=== PATIENT | male | born 1980 | race Caucasian/White ===

== ENCOUNTER 2023-09-20 17:15 | Emergency (ER) | payer OTHER, SELFPAY ==
[2023-09-20] VITALS (10 sets, daily range): BP systolic 116–133; BP diastolic 80–92; PULSE 64–94; RESP 18; TEMP 36.7; O2SAT 95–99; BMI 26.4
--- NOTE | 2023-09-20 18:39 | CRLHL7_ITS ---
For Patients: As a result of the Century Cures Act, medical imaging exams and procedure reports are released immediately into your electronic medical record. You may view this report before your referring provider. If you have questions, please contact your health care provider. INDICATION: Chest pain. TECHNIQUE: Chest 2 views. COMPARISON: None. FINDINGS: Cardiovascular and mediastinum: Heart size and vasculature are normal in caliber and appearance. Lungs and pleural spaces: Lungs are clear. No sign of infiltrate or mass. No sign of pleural effusion. No pneumothorax. Bones and soft tissues: No significant findings. IMPRESSION: No acute or significant findings. Dictated by Gadiel Zaldivar MD @ 09/20/2023 8:34:33 PM (Electronically Signed)
[2023-09-20 19:11] LABS: Basophils Absolute Auto 0.01 K/uL (0.00-0.30); Basophils Percent Auto 0.1 % (0.0-3.0); Eosinophils Absolute Auto 0.08 K/uL (0.00-0.50); Eosinophils Percent Auto 1.1 % (0.0-7.0); Hematocrit 50.3 % (37.0-53.0); Hemoglobin* 16.8 gm/dL (13.5-17.5); Immature Granulocytes Abs Auto 0.01 K/uL (0.00-0.30); Immature Granulocytes Pct Auto 0.1 %; Lymphocytes Absolute Auto 1.92 K/uL (0.90-2.90); Lymphocytes Percent Auto 27.1 % (20-44); Mean Corpuscular HGB Conc 33 gm/dL (32-36); Mean Corpuscular Hemoglobin 30 pg (26-34); Mean Corpuscular Volume 90 fL (80-100); Monocytes Percent Auto 9.7 % (0.0-11.0); Neutrophils Absolute Auto 4.38 K/uL (1.7-7.0); Neutrophils Percent Auto 61.9 % (42.0-72.0); Platelet Count* 176 K/uL (140-440); RDW Coefficient of Variation % 12.3 % (11.5-15.5); Red Blood Count 5.59 m/uL (4.30-5.90); White Blood Count* 7.09 K/uL (4.50-11.00)
[2023-09-20 19:14] LABS: Slide Review Reflex No
--- NOTE | 2023-09-20 19:19 | ED_ITS ---
HPI - SOB/Dyspnea General Date Seen: 09/20/23 Chief Complaint: Shortness of Breath/Dyspnea Stated Complaint: shortness of breath, heart pain Time Seen by Provider: 09/20/23 18:10 Source: patient Mode of arrival: ambulatory Limitations: no limitations History of Present Illness HPI Narrative: Patient is a 42-year-old male with no pertinent medical issues presented emergency department for chest pain and shortness of breath. States symptoms started yesterday after he drank 3 beers and smoked a cigarette. Does states he has been having the symptoms all and off for several years but yesterday felt worse. He woke up this morning felt the symptoms but is take went on he felt like he was developing them again. So came to emergency department. Symptoms resolved shortly after he was triaged and now he feels asymptomatic. Says the chest pain is a sharp sensation on both sides of his chest around ribs 3. Denies fevers, chills, abdominal pain, lightheadedness, dizziness, nausea, vom iting. Does states he has not seen a primary care provider in a long time. Related Data Home Medications Medication Instructions Recorded Confirmed No Known Home Medications 09/20/23 09/20/23 Allergies Allergy/AdvReac Type Severity Reaction Status Date / Time Penicillins Allergy Verified 09/20/23 17:32 Review of Systems Status of ROS: Reports: 10 or more systems reviewed and unremarkable except as noted in History and below [facility] Social History Smoking Status: Former smoker Do you use any of these nicotine containing products: None Second hand tobacco smoke exposure: No How often do you have a drink containing alcohol: never AUDIT-C Alcohol total score: 0 Non-prescribed substance use: denies use service: No Exam Narrative: Exam Narrative: Const: Well-nourished, Well-developed, in no distress Eyes: PERRL, no conjunctival injection, and symmetrical lids HENT: Atraumatic external nose and ears. Moist mucous membranes. Neck: Symmetric, trachea midline, No thyromegaly. CVS: RRR, No murmurs or gallops. Peripheral pulses 2+ and equal in all extremities RESP: Unlabored respiratory effort. Clear to auscultation bilaterally. GI: Nontender/Nondistended, No rebound or guarding. MSK:Extremities w/o deformity, Normal Active ROM Skin: Warm, Dry. No rashes or lesions. Neuro: Normal Muscle tone, No focal neurological deficits. Psych: Awake, Alert, & Oriented x3. Appropriate mood and affect. Const: Vital Signs, click to edit/add: Vital Signs - 24 hr 09/20/23 17:28 09/20/23 19:08 Temperature 98.0 F Pulse Rate 71 Pulse Rate [Right Pulse Oximeter] 94 Respiratory Rate 18 Blood Pressure [Le ft Forearm] 116/80 Pulse Oximetry 98 95 Oxygen Delivery Me thod Room Air Course Vital Signs Vital signs: Initial Vital Signs Temperature 98.0 F 09/20/23 17:28 Temperature Source Temporal Artery Scan 09/20/23 17:28 Pulse Rate 94 09/20/23 17:28 Respiratory Rate 18 09/20/23 17:28 Blood Pressure 116/80 09/20/23 17:28 Blood Pressure Mean 92 09/20/23 17:28 Blood Pressure Position Sitting 09/20/23 17:28 Pulse Oximetry 98 09/20/23 17:28 Oxygen Delivery Method Room Air 09/20/23 17:28 Vital Signs Temperature 98.0 F 09/20/23 17:28 Pulse Rate 94 09/20/23 17:28 Respiratory Rate 18 09/20/23 17:28 Blood Pressure 116/80 09/20/23 17:28 Pulse Oximetry 98 09/20/23 17:28 Oxygen Delivery Method Room Air 09/20/23 17:28 Temperature 98.0 F 09/20/23 17:28 Pulse Rate 71 09/20/23 19:08 Respiratory Rate 18 09/20/23 17:28 Blood Pressure 116/80 09/20/23 17:28 Pulse Oximetry 95 09/20/23 19:08 Oxygen Delivery Method Room Air 09/20/23 17:28 MDM - SOB/Dyspnea MDM Narrative Medical decision making narrative: Patient is a 42-year-old male presenting to emergency department for chest pain or shortness of breath. He has been having symptoms on and off for over a year now but states they got worse yesterday. Symptoms are now resolved today in the resolve shortly prior to coming back to his bed in the ED. no other concerns noted. Differential includes pneumonia, viral infection, pneumothorax, anxiety, ACS. Ordered chest x-ray, CBC, CMP, troponin, COVID/flu/RSV. EKG shows no concerning abnormalities. CBC, CMP, troponin showed no concerning findings. He is COVID positive which could be the cause of his symptoms. Chest x-ray showed no concerning abnormalities ED. patient is otherwise doing well I offered the patient Paxlovid but he declined. Lab Data Labs: Lab Results 09/20/23 Range/Units 18:39 WBC 7.09 (4.50-11.00) K/uL RBC 5.59 (4.30-5.90) m/uL Hgb 16.8 (13.5-17.5) gm/dL Hct 50.3 (37.0-53.0) % MCV 90 (80-100) fL MCH 30 (26-34) pg MCHC 33 (32-36) gm/dL RDW Coeff of Jose Alejandro 12.3 (11.5-15.5) % Plt Count 176 (140-440) K/uL Neut % (Auto) 61.9 (42.0-72.0) % Lymph % (Auto) 27.1 (20-44) % Whitfield % (Auto) 9.7 (0.0-11.0) % Eos % (Auto) 1.1 (0.0-7.0) % Baso % (Auto) 0.1 (0.0-3.0) % Neut # (Auto) 4.38 (1.7-7.0) K/uL Lymph # (Auto) 1.92 (0.90-2.90) K/uL Whitfield # (Auto) 0.70 (0.00-0.90) K/UL Eos # (Auto) 0.08 (0.00-0.50) K/uL Baso # (Auto) 0.01 (0.00-0.30) K/uL Abs Immat Gran (auto) 0.01 (0.00-0.30) K/uL Imm/Tot Granulo (auto) 0.1 % Sodium 138 (135-149) mmol/L Potassium 3.6 (3.6-5.1) mmol/L Chloride 101 (96-114) mmol/L Carbon Dioxide 31 (20-32) mmol/L Anion Gap 6 L (7-15) mEq/L BUN 15 (5-24) mg/dL Creatinine 1.1 (0.5-1.5) mg/dL Estimated Creat Clear 99.88 Estimated GFR 86 ml/min Glucose 96 (60-115) mg/dL Calcium 9.2 (8.4-10.6) mg/dL Total Bilirubin 0.7 (0.1-1.5) mg/dL AST 28 (12-35) U/L ALT 40 (4-50) U/L Alkaline Phosphatase 64 (40-150) U/L Total Protein 7.5 (6.0-8.3) g/dL Albumin 4.5 (3.3-5.0) g/dL SARS-CoV-2 (PCR) POSITIVE SARS-CoV-2 A (Negative) Influenza Type A (PCR) Negative PCR FLU A (Negative) Influenza Type B (PCR) Negative PCR FLU B (Negative) POC Troponin I 0.00 L (0.01-0.04) ng/ml Imaging Data Chest x-ray: Radiologist's impression: No acute or significant findings. Dictated by Gadiel Zaldivar MD @ 09/20/2023 8:34:33 PM ECG Data Attestation: I personally reviewed and interpreted this ECG as follows: Prior ECG tracings: not available for review Interpretation: Normal sinus rhythm with a rate of 87 beats per minute, normal intervals, normal axis, no ST or T-wave abnormalities. Discharge Plan Discharge Clinical Impression: COVID Patient Disposition: Home, Self-Care Condition: Stable Instructions: COVID-19 (Coronavirus Disease 2019) (ED) Additional Instructions: His symptoms appear to be likely from COVID. Quarantine for 5 days from onset of symptoms and 72 hours without fever. Return to emergency department for new worsening symptoms Prescriptions: No Action No Known Home Medications Follow Up/Referrals: Provider,Not a Local [Primary Care Provider] - Stand Alone Forms: [employer] Info Instructions
[2023-09-20 19:24] LABS: Albumin* 4.5 g/dL (3.3-5.0); Chloride* 101 mmol/L (96-114); Potassium* 3.6 mmol/L (3.6-5.1); Sodium* 138 mmol/L (135-149)
[2023-09-20 19:26] LABS: Creatinine* 1.1 mg/dL (0.5-1.5); Est. Creatinine Clearance* 99.88; Estimated Glomerular Filt Rate 86 ml/min
[2023-09-20 19:27] LABS: Alanine Aminotransferase* 40 U/L (4-50); Alkaline Phosphatase* 64 U/L (40-150); Anion Gap 6 mEq/L (7-15); Aspartate Amino Transferase* 28 U/L (12-35); Bilirubin Total* 0.7 mg/dL (0.1-1.5); Blood Urea Nitrogen* 15 mg/dL (5-24); Calcium* 9.2 mg/dL (8.4-10.6); Carbon Dioxide* 31 mmol/L (20-32); Glucose* 96 mg/dL (60-115); Total Protein* 7.5 g/dL (6.0-8.3)
[2023-09-20 19:49] LABS: PCR FLU A Negative PCR FLU A (Negative); PCR FLU B Negative PCR FLU B (Negative)
[2023-09-20 20:01] LABS: SARS PCR* POSITIVE SARS-CoV-2 (Negative)
== END 2023-09-20 21:09 | disposition home or self-care (01) ==
PROVIDERS: Emergency Provider Student in an Organized Health Care Education/Training Program
DX: U07.1 COVID-19 (principal)
CPT/HCPCS: 36415; 71046; 80053; 84484; 85025; 87631; 93005; 99283; 99284

== ENCOUNTER 2025-01-01 22:28 | Emergency (ER) | payer OTHER, SELFPAY ==
--- OUTSIDE RECORDS SUMMARY | 2025-01-01 22:30 | XMS_ITS | Encounter Summary ---
Author Organization [employer] Address [address] [place] [address] Care Team Providers Care Wheel Braider Name Role Phone Mayra Melendez APRN, CNP Primary Care Provide r Reason for Visit * Reason Comments CONSULT HEMORRHOIDS * Consult/Transfer Care (Routine) - New Request Specialty Diagnoses / Procedures Referred By Contac t Referred To Contact Diagnoses Rectal prolapse Mayra Melendez APRN, CNP [address] [place] [address] Phone: tel: fax: Referral ID Status Reason Start Date Expiration Date V isits Requested Visits Authorized [id number] New Request 11/04/2024 02/03/2026 1 1 Encounter Details Date Type Department Care Team (Late st Contact Info) Description 11/19/2024 1:00 PM CONCILIATOR [facility] [address] Colorectal Surgery [address] [place] [phone] Tracey Hwang PA-C [address] [place] [address] External hemorrhoids with complication (Primary Dx); Prolapsed internal hemorrhoids, grade 3; Rectal bleeding Social History Tobacco Use Types Packs/Day Years Used Date Smoking Tobacco: Former Cigarettes Passive Smoke Exposure: Never Alcohol Use Standard Drinks/Week Comments Not Currently 0 (1 standard drink = 0.6 oz pur e alcohol) Sex and Gender Information Value Date Recorded Sex Assigned at Not on file Legal Sex Male 8:41 AM CONCILIATOR Gender Identity Not on file Sexual Orientation Not on file documented as of this encounter Patient Instructions * Patient Instructions* Tracey Hwang PA-C - 11/19/2024 1:00 PM CONCILIATOR Bleeding/prolapsing hemorrhoids Hemorrhoids are swollen blood vessels in the rectum or anus that can become painful, itchy, or evenbleed when irritated. They are classified into two types: internal and external. Internal hemorrhoids are found inside the rectum and have no sensation, while external hemorrhoids develop under the skin around the anus and have sensation. Bleeding or prolapsing hemorrhoids occur when internal hemorrhoids become enlarged and protrude outside the anus, sometimes causing bleeding during bowel movements. Common factors that contribute to the development of hemorrhoids include straining during bowelmovements, constipation, , and prolonged sitting on the toilet. To reduce the risk of hemorrhoids or alleviate symptoms, it is essential to maintain a high-fiber diet, stay hydrated, and exercise regularly. Thoa-rep-jkzvcif treatments, such as creams or ointments, can provide temporary relief, but if symptoms persist or worsen, either office procedures or surgery may be needed for reliefof symptoms. ILIATOR documented in this encounter Progress Notes * Tracey Hwang PA-C - 11/19/2024 1:00 PM CST Images from the original note were not included. Colorectal Surgery Clinic Note DATE OF VISIT: 11/19/2024 SUBJECTIVE: CHIEF COMPLAINT: Chief Complaint Patient presents with CONSULT HEMORRHOIDS HPI: Pavel Thompson is a pleasant 44 y.o. male who presents to clinic today for evaluation of symptomatic mixed hemorrhoids. He reports 5 years now of significant symptoms and worsening discomfort. He is now seeking care since he is able to financially/health insurance. He reports external swelling/prolapse of tissue with each BM and now internal hemorrhoid prolapse as well, which he will have to manually reduce. He has a system for reducing the sensitive tissue andcleaning, but is difficult if not at home. He has a few significant flares a year of incredibly painful hemorrhoid episodes which will debilitate him for the week. He notes some bleeding with wiping,mostly during hemorrhoid flares. He is having a BM every 2 days, without straining. He does avoid using the restroom too often, as to not flare up his hemorrhoids. 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 He has tried various treatments, including Tucks pads, Preparation H, and witch shania, but these have not provided lasting relief. The patient denies a family history of colon cancer or inflammatory bowel disease. Overall he denies any unintentional weight loss, change in bowel habits, fever/chills, abdominal pain or black/tarry stools. Their most recent Colonoscopy: none Outpatient Medications Prior to Visit Medication Sig artifical tear (LACRILUBE, AKWA) eye ointment Place into both eyes two times daily as needed. Indications: Drying and Inflammation of Cornea and Conjunctiva of Eyes erythromycin 5 MG/GM (0.5%) eye ointment Place 0.5 Inches into right eye 4 times a day. Indications: Infection of the Conjunctiva of the Eye No facility-administered medications prior to visit. Allergies Allergen Reactions Penicillins Hives PMH: Reviewed PSH: Reviewed FH: Reviewed REVIEW OF SYSTEMS - Pertinent items are noted in HPI. OBJECTIVE: General: Alert, Oriented, NAD Head: Normocephalic. Eyes: PERRLA, full EOM Respiratory: Normal respiratory effort. Musculoskeletal: Gait is appropriate. Full ROM Neurological: No focal defects Psych: Affect is normal, patient is appropriate Rectal Exam: Patient is brought to the procto table and placed in the knee-chest position. Upon spreading the buttocks apart, he is noted to have enlarged left sided external hemorrhoid cushion, smaller on right side. Upon spreading the anal verge further apart, no evidence of fissures. Next, digital exam is performed. Shows no masses. Bulk of tissue and more tenderness on left side. Next, anoscopy is performed, very bulky g2? internal hemorrhoids are present in right posterior and right anterior positions; large external hemorrhoid cushion visible intra-anally on left side, and bulky internal hemorrhoid tissue partially visualized. Patient is then examined on the commode with a plumbers mirror and flashlight. Large bulbus left sided external hemorrhoid cushion with internal hemorrhoid tissue visible and actively bleeding. No active right sided prolapse today. Patient tolerated the procedure well. ASSESSMENT: 1. External hemorrhoids with complication 2. Prolapsed internal hemorrhoids, grade 3 3. Rectal bleeding PLAN: Symptomatic Hemorrhoids: We discussed treatment options ranging from conservative cares, to internal hemorrhoid banding for just internal symptoms (bleeding, prolapse), to outpatient surgery: hemorrhoidectomy. We did brieflydiscuss hemorrhoidectomy procedure and 2 week recovery. - Due to size of external hemorrhoid cushion, and external symptoms I will refer him onto one of the colorectal surgeons for further discussion of surgical options and more definitive management - Proctosol-HC cream PRN flares - Lidocaine rectal cream PRN flares/comfort Rectal bleeding: Likely from the internal hemorrhoids, and visualized active bleeding today We did discuss however colonoscopy for further evaluation if bleeding is not resolving after hemorrhoids are managed The patient was provided with educational handouts on hemorrhoids and post- banding care sheet. I counseled the patient regarding diagnosis, treatment options, alternatives to therapy, complications, and expected outcomes. LOS based on complexity and time Tracey Hwang PA-C 1:19 PM 11/19/2024 ILIATOR documented in this encounter Plan of Treatment Upcoming Encounters Date Type Department Care Team (Late st Contact Info) Description 02/10/2025 10:40 AM CDT Appointment Specialty [facility] [address] Colorectal Surgery [address] [facility] [address] [place] [address] Camilo Hatfield MD [address] [facility] [address] [place], [place] [address] documented as of this encounter Visit Diagnoses Diagnosis External hemorrhoids with complication- Primary External hemorrhoids with other complication Prolapsed internal hemorrhoids, grade 3 Rectal bleeding Hemorrhage of rectum and anus documented in this encounter Care Teams Wheel Braider Relationship Specialty Start Date End Date Mayra Melendez, SNACK BAR CASHIER, LOG ROLLER [address] [place] [address] PCP - General Nurse Practitioner 10/17/24 documented as of this encounter
--- OUTSIDE RECORDS SUMMARY | 2025-01-01 22:30 | XMS_ITS | Clinical Summary ---
Author Organization [employer] Address [address] [place] [address] Care Team Providers Care Insole Department Worker Name Role Phone Mayra Melendez APRN, CNP Primary Care Provide r Source Comments You are receiving this document as you are listed as the primary care provider,follow-up provider, or the patient has been referred to you for consultation.This is in compliance with the Medicare and[facility] EHR Incentive Program,which states Providers who transition their patient to another setting of careor provider of care or refers their patient to another provider of care shouldprovide summary care record for each transition of care or referral. [employer] Allergies Active Allergy Reactions Criticality Noted Date Comments Penicillins Hives High 10/17/2024 Medications erythromycin 5 MG/GM (0.5%) eye ointmentIndicati ons:Conjunctival Infection Place 0.5 Inches into right eye 4 times a day. Indications: Infection of the Conjunctiva of the Eye 3.5 g 5 Active artifical tear (LACRILUBE, AKWA) eye ointmentIndicati ons:Dry Eye Syndrome Place into both eyes two times daily as needed. Indications: Drying and Inflammation of Cornea and Conjunctiva of Eyes 10 g 3 5 Active hydrocortisone, Perianal, (PROCTOSOL-HC) 2.5 % rectal creamIndications :External hemorrhoids with complication Insert rectally two times daily as needed. 30 g 1 5 Active Lidocaine, Anorectal, 5 % creamIndications :External hemorrhoids with complication Apply topically two times daily as needed. 30 g 1 5 Active Active Problems No known active problems Encounters Date Type Department Care Team Description 11/19/2024 1:00 PM STEEL SAMPLER Office Visit [facility] [address] Colorectal Surgery [address] [place] [phone] Tracey Hwang PA-C External hemorrhoids with complication (Primary Dx); Prolapsed internal hemorrhoids, grade 3; Rectal bleeding 11/03/2024 [facility] [address] [place] [address] Mayra Melendez APRN, JESSIE REFERRAL REQUEST 10/27/2024 [facility] [address] [place] [address] Mayra Melendez APRN, JESSIE RESULTS, TEST 10/23/2024 E-Consult Endoscopy at [facility] at [address] [place] [address] Jemal Magallon MD 10/17/2024 11:00 AM STEEL SAMPLER [facility] [address] [place] [address] Mayra Melendez, YORDY, PETROLOGIST Rectal prolapse (Primary Dx); Acute bacterial conjunctivitis of right eye 10/10/2024 [facility] [address] [place] [address] Needs Pcp, Assignment HEMORRHOIDS from Last 3 Months Social History Tobacco Use Types Packs/Day Years Used Date Smoking Tobacco: Former Cigarettes Passive Smoke Exposure: Never Tobacco Cessation:Counseling Given: Not Answered Alcohol Use Standard Drinks/Week Comments Not Currently 0 (1 standard drink = 0.6 oz pur e alcohol) Sex and Gender Information Value Date Recorded Sex Assigned at Not on file Legal Sex Male 8:41 AM STEEL SAMPLER Gender Identity Not on file Sexual Orientation Not on file Last Filed Vital Signs Vital Sign Reading Time Taken Comments Blood Pressure 150/96 10/17/2024 10:58 AM STEEL SAMPLER Pulse 77 10/17/2024 10:58 AM STEEL SAMPLER Temperature - - Respiratory Rate - - Oxygen Saturation - - Inhaled Oxygen Concentration - - Weight 90.7 kg (200 lb) 10/17/2024 10:58 AM STEEL SAMPLER Height 185.4 cm (6' 1) 10/17/2024 10:58 AM STEEL SAMPLER Body Mass Index 26.39 10/17/2024 10:58 AM STEEL SAMPLER Plan of Treatment Upcoming Encounters Date Type Department Care Team (Late st Contact Info) Description 02/10/2025 10:40 AM CDT Appointment Specialty Center [address] Colorectal Surgery [address] [place] [address] Camilo Hatfield MD [address] [facility] [address] [place], [place] [phone] Health Maintenance Due Date Last Done Comments Diabetes Screening- (based o n age and BMI) 1981 Hep C Screening (Preventive Services) 1981 HIV Screening (Preventive Services) 1997 Adult Preventive Visit 1999 HepB (1) 2000 Cholesterol 2016 COVID-19 Vaccine (3 - 2023-2 5 season) 2024 07/08/2021, 06/10/2021 Influenza (#1) 2024 DTaP/Tdap/Td (2 - Tdap) 02/08/2025 02/08/2015 Zoster/Shingles (1 of 2) 2031 HPV Vaccine Aged Out No longer eligi ble based on patient's age to complete this topic HepA Aged Out No longer eligi ble based on patient's age to complete this topic Hib Aged Out No longer eligi ble based on patient's age to complete this topic IPV (Polio) Aged Out No longer eligi ble based on patient's age to complete this topic MCV4 Aged Out No longer eligi ble based on patient's age to complete this topic Meningococcal B Aged Out No longer el igible based on patient's age to complete this topic Pneumococcal Aged Out No longer eligi ble based on patient's age to complete this topic Insurance [id number] [place] [id number] [facility] Care Teams Insole Department Worker Relationship Specialty Start Date End Date Mayra Melendez, OCCUPATIONAL THERAPY TEACHER, PETROLOGIST [address] [place], [place] [address] PCP - General Nurse Practitioner 10/17/24
--- OUTSIDE RECORDS SUMMARY | 2025-01-01 22:30 | XMS_ITS | Clinical Summary ---
Author Organization [facility] [facility] [employer] Address [address] [place] [address] Care Team Providers Care Human Resource Adviser Name Role Phone Mayra Leavitt Primary Care Provider [phone] Allergies Active Allergy Reactions Criticality Noted Date Comments Penicillins Hives 02/05/2009 Medications No known medications Immunizations Immunization Administration Dates Next Due COVID-19 vaccine (Moderna 100mcg/0.5mL) PF, MDV 07/08/2021,06/10/2021 Td (Age >=7 Years) 06/07/2003 Tdap 02/08/2015 Social History Tobacco Use Types Packs/Day Years Used Date Smoking Tobacco: Former Cigarettes Smokeless Tobacco: Never Tobacco Cessation:Counseling Given: Yes Comments:social Alcohol Use Standard Drinks/Week Comments Yes 0 (1 standard drink = 0.6 oz pur e alcohol) Sex and Gender Information Value Date Recorded Sex Assigned at Not on file Legal Sex Male 5:23 AM DENTAL OFFICE RECEPTIONIST Gender Identity Not on file Sexual Orientation Not on file Obstetrics History Last Filed Vital Signs Vital Sign Reading Time Taken Comments Blood Pressure 110/88 09/25/2016 3:28 PM DENTAL OFFICE RECEPTIONIST Pulse 60 11/07/2016 1:30 PM DENTAL OFFICE RECEPTIONIST Temperature - - Respiratory Rate 11/07/2016 1:30 PM DENTAL OFFICE RECEPTIONIST Oxygen Saturation - - Inhaled Oxygen Concentration - - Weight 88.5 kg (195 lb) 11/07/2016 1:30 PM DENTAL OFFICE RECEPTIONIST Height 185.4 cm (6' 1) 09/25/2016 3:28 PM DENTAL OFFICE RECEPTIONIST Body Mass Index 25.73 09/25/2016 3:28 PM DENTAL OFFICE RECEPTIONIST Plan of Treatment Health Maintenance Due Date Last Done Comments Depression screening for age 12+ 1993 HIV for age 15-65 1996 Hepatitis C screening for ag e 18-79 1999 Lipids for age 35-44 2016 BMI (ht and wt on same day) for age 18+ 09/25/2017 09/25/2016 COVID-19 vaccine series (2023- season) 2024 07/08/2021, 06/10/2021 Influenza Vaccine (#1) 2024 Tetanus booster 02/08/2025 02/08/2015, 06/07/2003 Tdap Completed 02/08/2015 Pneumococcal series for age 6-49 Aged Out No longer eligible b ased on patient's age to complete this topic Care Teams Human Resource Adviser Relationship Specialty Start Date End Date Mayra Leavitt PA PCP - General Physician Supervisor Hydrochloric Area 09/26/16
--- OUTSIDE RECORDS SUMMARY | 2025-01-01 22:30 | XMS_ITS | Clinical Summary ---
Author Organization [facility] Address [address] [place] [address] Care Team Providers Care Dye Lab Technician Name Role Phone None Reported, Pcp Primary Care Provider Unavail able Source Comments Patient records contain information from all sites at [facility]. For routine questions regarding patient records, call [phone] during business hours, M-F 8:00 AM - 5:00 PM Central Time. Record requests for emergency care only can be directed to [phone] at any time.[facility] Allergies Active Allergy Reactions Criticality Noted Date Comments Penicillins Hives (Reselect Reaction) 9 Medications erythromycin (ROMYCIN) 5 mg/gram (0.5 %) ophthalmic ointment Apply 1 cm to left eye every 8 (eight) hours. 3.5 g 09/25/2023 Active erythromycin (ROMYCIN) 5 mg/gram (0.5 %) ophthalmic ointment Apply 1 cm to left eye every 8 (eight) hours. 4 g 09/25/2023 Active Immunizations Immunization Administration Dates Next Due Td (Adult), adsorbed 06/07/2003 Social History Tobacco Use Types Packs/Day Years Used Date Smoking Tobacco: Former Cigarettes Smokeless Tobacco: Never Tobacco Cessation:Counseling Given: Not Answered Alcohol Use Standard Drinks/Week Comments Yes 0 (1 standard drink = 0.6 oz pur e alcohol) occasional Nutrition Answer Date Recorded Nutrition: EVOO Fat Source Unknown 09/25 Nutrition: Servings of Fruits/Vegetables per Day Not on file 09/25/2023 Dental Answer Date Recorded Dental: Regular Dentist Unknown 09/25/20 23 Sex and Gender Information Value Date Recorded Sex Assigned at Not on file Legal 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 Gender Identity Not on file Sexual Orientation Not on file Last Filed Vital Signs Vital Sign Reading Time Taken Comments Blood Pressure 147/105 09/25/2023 10:54 PM YARD WORKER Pulse 77 09/25/2023 10:54 PM YARD WORKER Temperature 36.6 C (97.9 F) 09/25/2023 10:54 PM YARD WORKER Respiratory Rate 20 09/25/2023 10:54 PM YARD WORKER Oxygen Saturation 95% 09/25/2023 10:54 PM YARD WORKER Inhaled Oxygen Concentration - - Weight 88.6 kg (195 lb 5.2 oz) 09/25/2023 10:20 PM YARD WORKER Height - - Body Mass Index - - Plan of Treatment Health Maintenance Due Date Last Done Comments HIV Screening 1981 Hepatitis B Screening 1981 Hepatitis C Screening 1981 Lipid (Cholesterol) Screening 1981 Hepatitis B Vaccines (1 of 3 - 19+ 3-dose series) 2000 COVID-19 Vaccine (2023-2 5 season) 2024 07/08/2021, 06/10/2021 Influenza Vaccine (#1) 2024 Depression Screening (Annual PHQ-2) 10/15/2024 DTaP,Tdap,and Td Vaccines (2 - Td or Tdap) 02/08/2025 02/08/2015, 06/07/2003 HPV Vaccines Aged Out No longer eligi ble based on patient's age to complete this topic IPV Vaccines Aged Out No longer eligi ble based on patient's age to complete this topic Pneumococcal vaccine (0-49 years) Aged Out No longer eligible b ased on patient's age to complete this topic Care Teams Dye Lab Technician Relationship Specialty Start Date End Date None Reported, Pcp PCP - General Family Medicine 09/25/23
[2025-01-01 22:41] VITALS: BP 162/84; PULSE 79; RESP 16; TEMP 37.1; O2SAT 98; BMI 25.1
--- OUTSIDE RECORDS SUMMARY | 2025-01-02 00:59 | XMS_ITS | Encounter Summary ---
Author Organization [facility] Address [address] [place] [address] Care Team Providers Care Manager Electrical Name Role Phone Mayra Melendez APRN, CNP Primary Care Provide r Reason for Visit * Reason Comments CONSULT HEMORRHOIDS * Consult/Transfer Care (Routine) - New Request Specialty Diagnoses / Procedures Referred By Contac t Referred To Contact Diagnoses Rectal prolapse Mayra Melendez APRN, CNP [address] [place] [address] Phone: tel: fax: Referral ID Status Reason Start Date Expiration Date V isits Requested Visits Authorized [id number] New Request 11/04/2024 02/03/2026 1 1 Encounter Details Date Type Department Care Team (Late st Contact Info) Description 11/19/2024 1:00 PM NUTRITION AIDES TEACHER [facility] [address] [facility] [address] [place] [phone] Tracey Hwang PA-C [address] [place] [address] External hemorrhoids with complication (Primary Dx); Prolapsed [...] on file Legal Sex Male 8:41 AM NUTRITION AIDES TEACHER Gender Identity Not on file Sexual Orientation Not on file documented as of this encounter Patient Instructions * Patient Instructions* Tracey Hwang PA-C - 11/19/2024 1:00 PM NUTRITION AIDES TEACHER Bleeding/prolapsing hemorrhoids Hemorrhoids are swollen blood vessels [...] high-fiber diet, stay hydrated, and exercise regularly. [id number] treatments, such as creams or ointments, can provide temporary relief, but if symptoms persist or worsen, either office procedures or surgery may be needed for reliefof symptoms. ITION AIDES TEACHER documented in this encounter Progress Notes * [...] time Tracey Hwang PA-C 1:19 PM 11/19/2024 ITION AIDES TEACHER documented in this encounter Plan of Treatment Upcoming Encounters Date Type Department Care Team (Late st Contact Info) Description 02/10/2025 10:40 AM CDT Appointment [facility] 39[address] Colorectal Surgery [address] [facility] [address] [place] [address] Camilo Hatfield MD [address] [facility] [address] [place], [place] [id number] documented as of this encounter Visit Diagnoses Diagnosis External hemorrhoids with complication- Primary External hemorrhoids with other complication Prolapsed internal hemorrhoids, grade 3 Rectal bleeding Hemorrhage of rectum and anus documented in this encounter Care Teams Manager Electrical Relationship Specialty Start Date End Date Mayra Melendez, MOLD FILLER PLASTIC DOLLS, RUBBER BOOTS AND SHOES REPAIRER [address] [place] [address] PCP - General Nurse Practitioner 10/17/24 documented as of this encounter
--- OUTSIDE RECORDS SUMMARY | 2025-01-02 00:59 | XMS_ITS | Clinical Summary ---
Author Organization [facility] Address [address] [place] [address] Care Team Providers Care Mold Insert Changer Name Role Phone Mayra Melendez APRN, CNP Primary Care Provide r Source Comments You are receiving this document as you are listed as the primary care provider,follow-up provider, or the patient has been referred to you for consultation.This is in compliance with the Medicare andGrant Hospital[employer] EHR Incentive Program,which states Providers who transition their patient to another setting of careor provider of care or refers their patient to another provider of care shouldprovide summary care record for each transition of care or referral. [facility] Allergies Active Allergy Reactions Criticality Noted Date [...] Department Care Team Description 11/19/2024 1:00 PM MANGLE TENDER Office Visit [facility] [address] Colorectal Surgery [address] [place] [phone] Tracey Hwang PA-C External hemorrhoids with complication (Primary Dx); Prolapsed internal hemorrhoids, grade 3; Rectal bleeding 11/03/2024 Telephone [facility] [address] [facility] [place] [address] Mayra Melendez APRN, JESSIE REFERRAL REQUEST 10/27/2024 Telephone [facility] [address] [facility] [place] [address] Mayra Melendez APRN, JESSIE RESULTS, TEST 10/23/2024 E-Consult Endoscopy at [facility] at [address] [place] [address] Jemal Magallon MD 10/17/2024 11:00 AM MANGLE TENDER Office [facility] [address] [place] [address] Mayra Melendez, YORDY, FIBER TECHNICIAN Rectal prolapse (Primary Dx); Acute bacterial conjunctivitis of right eye 10/10/2024 Nurse Triage [facility] [address] [place] [address] Needs Pcp, Assignment HEMORRHOIDS from Last 3 [...] on file Legal Sex Male 8:41 AM MANGLE TENDER Gender Identity Not on file Sexual Orientation Not on file Last Filed Vital Signs Vital Sign Reading Time Taken Comments Blood Pressure 150/96 10/17/2024 10:58 AM MANGLE TENDER Pulse 77 10/17/2024 10:58 AM MANGLE TENDER Temperature - - Respiratory Rate - - Oxygen Saturation - - Inhaled Oxygen Concentration - - Weight 90.7 kg (200 lb) 10/17/2024 10:58 AM MANGLE TENDER Height 185.4 cm (6' 1) 10/17/2024 10:58 AM MANGLE TENDER Body Mass Index 26.39 10/17/2024 10:58 AM MANGLE TENDER Plan of Treatment Upcoming Encounters Date Type Department Care Team (Late st Contact Info) Description 02/10/2025 10:40 AM CDT Appointment Specialty Center 39[address] Colorectal Surgery [address] [place] [address] Camilo Hatfield MD [address] [facility] [address] [place], [place] [phone] Health Maintenance Due Date Last Done Comments [...] to complete this topic Insurance [id number] [place] [id number] [facility] Care Teams Mold Insert Changer Relationship Specialty Start Date End Date Mayra Melendez, ENERGY RISK MANAGEMENT ANALYST, FIBER TECHNICIAN [address] [place], [place] [phone] PCP - General Nurse Practitioner 10/17/24
--- OUTSIDE RECORDS SUMMARY | 2025-01-02 00:59 | XMS_ITS | Clinical Summary ---
Author Organization [facility] Address [address] [place] [address] Care Team Providers Care Laboratory Associate Name Role Phone Mayra Leavitt Primary Care Provider [phone] Allergies Active Allergy Reactions Criticality Noted Date [...] on file Legal Sex Male 5:23 AM LAP RUNNER Gender Identity Not on file Sexual Orientation Not on file Obstetrics History Last Filed Vital Signs Vital Sign Reading Time Taken Comments Blood Pressure 110/88 09/25/2016 3:28 PM LAP RUNNER Pulse 60 11/07/2016 1:30 PM LAP RUNNER Temperature - - Respiratory Rate 11/07/2016 1:30 PM LAP RUNNER Oxygen Saturation - - Inhaled Oxygen Concentration - - Weight 88.5 kg (195 lb) 11/07/2016 1:30 PM LAP RUNNER Height 185.4 cm (6' 1) 09/25/2016 3:28 PM LAP RUNNER Body Mass Index 25.73 09/25/2016 3:28 PM LAP RUNNER Plan of Treatment Health Maintenance Due Date [...] age to complete this topic Care Teams Laboratory Associate Relationship Specialty Start Date End Date Mayra Leavitt PA PCP - General Physician Lens Cementer 09/26/16
== END 2025-01-01 23:39 | disposition left against medical advice (07) ==
LOC: ED 23:33
PROVIDERS: Visit Provider Family Medicine
DX: Z53.21 Procedure and treatment not carried out due to patient leaving prior to being seen by health care provider (principal)
CPT/HCPCS: 99281